=== PATIENT | female | born 1950 | race Caucasian/White ===

== ENCOUNTER → 2016-11-29 | Outpatient (CLI) | payer OTHER ==
[~2016-11-29] MED LIST: AMBI10TA PO; COUM5TAB PO; CPMMACHINE; GENTAMICIN SULFATE 80 MG/2 ML VIAL ONE; HYDR-3583 PO; LABE100T2 PO; PERC10TA27 PO; PROZ40CA PO; RELAFEN; TAMS0.4C4 PO; WALKER WHEELS/F1 MIS; [UNRECOGNIZED DRUG - CODE] IT
== END ==
LOC: CPRE 10:28
PROVIDERS: ATTEND Orthopaedic Surgery Orthopaedic Surgery of the Spine
DX: M17.11 Unilateral primary osteoarthritis, right knee (principal)

== ENCOUNTER 2016-12-10 14:29 | Inpatient (IN) | payer OTHER, MEDICARE ==
[~2016-12-10] VITALS: Ht 172.7 cm; Wt 82.1 kg
[~2016-12-10 14:29] MED LIST changes: -COUM5TAB PO; -CPMMACHINE; +DEXAMETHASONE SOD PHOS 4 MG/ML VIAL IV ONE; +ESMOLOL HCL 100 MG/10 ML VIAL IV ONE; -GENTAMICIN SULFATE 80 MG/2 ML VIAL ONE; +GLYCOPYRROLATE 1 MG/5 ML VIAL IV PUSH ONE; +LABETALOL HCL 100 MG/20 ML VIAL IV ONE; +LACTATED RINGER'S 1000 ML INJ 1,000 ML IV ONE; +LIDOCAINE HCL 1% PF 5 ML AMPULE OTHER ONE; +MIDAZOLAM HCL 2 MG/2 ML VIAL IV ONE; +NEOSTIGMINE 3 MG/3 ML SYR IV ONE; +ONDANSETRON HCL 4 MG/2 ML VIAL IV PUSH ONE; -PERC10TA27 PO; +PHENYLEPH/NS 1000 MCG/10 ML SYR IV ONE; +PROPOFOL 200 MG/20 ML AMP IV ONE; -RELAFEN; +ROCURONIUM INJ 50 MG/5 ML SYRINGE IV PUSH ONE; +SODIUM CHLORIDE 0.9% 20 ML VIAL IV ONE; -WALKER WHEELS/F1 MIS; +ePHEDrine/NS 25 MG/5 ML SYR IV ONE; +hydrALAZINE HCL 20 MG/ML VIAL IV ONE
[2016-12-10] MEDS ORDERED: GENTAMICIN SULFATE 80 MG/2 ML VIAL ONE (15:12)
[2016-12-10] MEDS ORDERED: ACETAMINOPHEN 1000 MG/100 ML 100 ML IV ONE (15:12)
[2016-12-10] MEDS ORDERED: BUPIVACAINE HCL PF 0.25% 30 ML VIAL ONE (15:12)
[2016-12-10] MEDS ORDERED: DEXAMETHASONE SOD PHOS PF 10 MG/ML VIAL ONE (15:12)
[2016-12-10] MEDS ORDERED: ceFAZolin 2 GM PREMIX 50 ML ONE (15:12)
[2016-12-10] MEDS ORDERED: LACTATED RINGER'S 1000 ML IV PRN (15:15)
[2016-12-10] MEDS ORDERED: INSULIN HUMAN REGULAR 1,000 UNITS/10 ML VIAL SQ PRN (15:15)
[2016-12-10] MEDS ORDERED: SODIUM CHLORID 0.9% 500 ML IV PRN (15:15)
[2016-12-10] MEDS ORDERED: POVIDONE IODINE 5% (ANTISEPSIS KIT) 4 APPLICATIONS EACH NARE PRN (15:15)
[2016-12-10] MEDS ORDERED: CHLORHEXIDINE GLUCONATE 2 % 1 PACK (2 CLOTHS) TOPICAL PRN (15:15)
[2016-12-10] MEDS ORDERED: METOPROLOL TARTRATE 25 MG TAB PO PRN (15:15)
[2016-12-10] MEDS ORDERED: ceFAZolin 2 GM PREMIX 50 ML IV SCH (15:30)
[2016-12-10] MEDS ORDERED: VANCOMYCIN 1000 MG/NS 250 ML (for <70 kg) IV SCH ×2 (15:30)
[2016-12-10] MEDS ORDERED: ROPIVACAINE PERI-ARTICULAR INJECTION. P-ARTICULR SCH ×5 (15:30)
[2016-12-10] MEDS ORDERED: CHLORHEXIDINE GLUCONATE 4% SOLN 120 ML BTL TOPICAL SCH (15:30)
[2016-12-10] MEDS ORDERED: ROPIVACAINE 0.5% PF INJ 30 ML VIAL ONE (15:43)
[2016-12-10] MEDS ORDERED: FAMOTIDINE 20 MG/2 ML VIAL ONE (15:45)
[2016-12-10] MEDS ORDERED: APREPITANT 40 MG CAP ONE (15:46)
[2016-12-10] MEDS ORDERED: HYDROmorphone HCL PF 2 MG/ML VIAL ONE ×2 (17:04→20:18)
[2016-12-10] MEDS: LACTATED RINGER'S 1000 ML INJ 1,000 ML IV SCH (18:25)
[2016-12-10] MEDS ORDERED: ALUMINUM/MAGNESIUM/SIMETH 30 ML CUP PO PRN (18:30)
[2016-12-10] MEDS ORDERED: Post-op Orders (for Pharmacy) MISC XX ONE (18:30)
[2016-12-10] MEDS ORDERED: SODIUM CHLORIDE 0.9% FLUSH 5 ML FLUSH IVF PRN (18:30)
--- NOTE | 2016-12-10 18:30 | HHI.FF ---
Face to Face Verification Diagnosis: (1) Osteoarthritis of right knee Physical Therapy Gait training, Transfer training, bed to chair Knee: Total knee, Protocol: Right, Full weight bearing Right LE Weight Bearing: WB as tolerated Left LE Weight Bearing: WB as tolerated Nursing RN: 3 days/week x 2 weeks Nursing: Dressing changes (clean incision with alcohol and apply dry sterile dressing ) Additional Instructions Pt/INR q Friday and , call/text results to Christina PHELPS [phone] Goal INR 1.5-1.8 I have seen patient Ciarra Lei on 12/10/16. My clinical findings support the need for the requested home health care services because: Deconditioned w/ increased weakness I certify that my clinical findings support that this patient is homebound because: Post-op weakness Akira Ramirez MD Dec 10, 2016 18:30
[2016-12-10] MEDS ORDERED: CPMMACHINE (18:31)
[2016-12-10] MEDS ORDERED: WALKER WHEELS/F1 MIS (18:31)
--- NOTE | 2016-12-10 18:34 | HHI.PR ---
Immediate Post Op Note Procedure Date: Dec 10, 2016 Pre Op Diagnosis: (1) Osteoarthritis of right knee Post Op Diagnosis: (1) Osteoarthritis of right knee Surgeon: Akira Ramirez M.D. Dance Professor(s): Christina Shelton PA-C Procedure: R TKA Complications: none Estimated blood loss: 25cc Anesthesia: General Drains: Hemovac Tourniquet time (min at mmHg) 71 @ 250 mmHg Patient to: PACU Patient Condition: Good Implant/Devices: SEE IMPLANT LOG (if applicable) Date/Time of Procedure: SEE SURGICAL CARE RECORD Akira Ramirez MD Dec 10, 2016 18:34
[2016-12-10] MEDS ORDERED: DO NOT ADM ANY ANTICOAGULANT DRUGS PRN (18:40)
[2016-12-10] MEDS ORDERED: *MEPERIDINE 25 MG INJ VIAL PERIprocedural Use ONLY ONE (18:43)
[2016-12-10] MEDS ORDERED: MEPERIDINE HCL 50 MG/ML VIAL ONE (18:52)
--- NOTE | 2016-12-10 19:22 | RADRPT ---
EXAM DATE/TIME: 12/10/2016 18:48 [facility] COMPARISON: No previous studies available for comparison. INDICATIONS : Post-op right total knee replacement. MEDICAL HISTORY : Hypertension. SURGICAL HISTORY : Appendectomy. ENCOUNTER: Initial ACUITY: 1 day PAIN SCORE: 10/10 LOCATION: Right knee. FINDINGS: Total knee arthroplasty is in place. The femoral, tibial, and patellar components appear intact. Th ere are no signs of loosening or fracture. CONCLUSION: Intact total knee arthroplasty for tracey. DrewMagalie Marcial MD on December 10, 2016 at 19:20 Board Certified Radiologist. This report was verified electronically.
[2016-12-10] MEDS ORDERED: MEPERIDINE HCL 25 MG/ML VIAL IV PRN (19:30)
[2016-12-10 20:55] VITALS: BP 152/67; PULSE 67; RESP 17; TEMP 97.1; O2SAT 97
[2016-12-10] MEDS: TAMSULOSIN HCL 0.4 MG CAP PO SCH (21:43)
[2016-12-10] MEDS: FLUoxetine HCL 20 MG CAP PO SCH (21:43)
[2016-12-10] MEDS: LABETALOL HCL 100 MG TAB PO SCH (21:43)
[2016-12-10] MEDS: ACETAMINOPHEN/HYDROcodone 325 MG/10 MG TAB PO PRN (21:44)
[2016-12-10] MEDS: SODIUM CHLORIDE 0.9% FLUSH 5 ML FLUSH IVF SCH (21:46)
--- NOTE | 2016-12-10 21:55 | EKG ---
Date Performed: 12/10/2016 Time Performed: 15:28:31 PTAGE: 65 years EKG: PROBABLY Sinus rhythm ARTIFACT LOW QRS VOLTAGE IN PRECORDIAL LEADS POOR R WAVE PROGRESSION ABNORMAL ECG NO PREVIOUS TRACING DOCTOR: Tima Roberts Interpretating Date/Time 12/10/2016 21:54:28
[2016-12-10] MEDS: ZOLPIDEM TARTRATE 10 MG TAB PO SCH (22:54)
[2016-12-11] VITALS (7 sets, daily range): BP systolic 101–152; BP diastolic 52–65; PULSE 60–73; RESP 16–18; TEMP 96.5–99.5; O2SAT 93–96
[2016-12-11] MEDS: ACETAMINOPHEN/HYDROcodone 325 MG/10 MG TAB PO PRN ×3 (03:31→13:40)
[2016-12-11] MEDS: LACTATED RINGER'S 1000 ML INJ 1,000 ML IV SCH ×2 (05:09→19:25)
--- NOTE | 2016-12-11 06:31 | MP ---
cc: PADMINI MCKEON,CASSIE Aquino M.D. DATE OF SURGERY December 10, 2016 PREOPERATIVE DIAGNOSIS Right knee severe tricompartmental osteoarthritis, knee stiffness. POSTOPERATIVE DIAGNOSIS Right knee severe tricompartmental osteoarthritis, knee stiffness. PROCEDURE Right total knee arthroplasty - cemented Biomet Vanguard. SURGEON Tony Ramirez MD ASSESSMENT Christina Shelton PA-C SPECIMEN None. ESTIMATED BLOOD LOSS 50 cc COMPLICATIONS None. ANESTHESIA General, femoral nerve block, intraarticular block. DRAINS Two. TOURNIQUET TIME 71 minutes at 250 mmHg. CONDITION Stable. PLAN OF ACTIVITY As per orders. PROCEDURE My respiratory therapist assistant Christina Shelton PA-C, was present for the entire surgical case. She was medically necessary for the entire case because of the complexity of the case and to facilitate the performance of the procedure. The BELLING MACHINE OPERATOR at the back table was not of the skill set for this case, to manipulate the instruments e.g. the multiple different soft tissue retractors, trial implants and permanent implants. The patient was brought into the operating room and had satisfactory general endotracheal anesthesia by Dr. Ford Pennington of the Department of Anesthesia. The patient also had a right femoral nerve block and had an intraarticular block by myself during the surgery. The right lower extremity was prepped and draped in the usual sterile manner. The extremity was exsanguinated by elevation and the tourniquet inflated to 250 mmHg. Anterior surgical incision was made on the right knee. Paramedian capsulotomy was performed. The patient was found to have severe tricompartmental osteoarthritis with significant stiffness involving the knee. Loose bodies were removed from within the joint itself. The remaining portion of the medial and lateral meniscus were removed. The anterior cruciate ligament was already gone. The posterior cruciate ligament was preserved. Prepatellar fat pad was surgically excised. Using the Biomet Vanguard total knee arthroplasty system, IM guide was used for the distal femoral cut. This was to accept a 67.5 mm femoral component, 5-degree valgus cut. Extramedullary guide was used for the tibia to accept a 75-mm tibial component with a 12-mm insert. Appropriate soft tissue balances in both flexion and extension were performed and the patient was found to have excellent balancing of the knee. The undersurface of the patella was removed to accept a 34-mm three-pronged patellar prosthesis. The 12-mm cupped tibial insert was found to be most stable and satisfactory. All trial components were removed and preparation for cementing was made. The knee was irrigated with copious amounts of sterile saline antibiotic solution. Two packages of Biomet Pal[place]os bone cement was used. First the tibial component was cemented which was a #75 mm tibial component, followed by the femoral component which was #67.5 femoral component. All excess bone cement was removed and the bone cement was allowed to harden for 12 minutes. The undersurface of the patella also had inserted a 34-mm, three-pronged patellar prosthesis. The 12 mm lipped or cupped tibial component was utilized. The patient was found to have excellent balance in flexion and extension and excellent stability. The clip was then assembled onto the tibial tray. The tourniquet was deflated. The wound itself was dry. All bleeders were coagulated. The wound was irrigated with 4000 cc of sterile saline antibiotic solution. The wound itself was dry. The wound was closed in the routine manner with two drains hooked up to an Autovac type system. The wound was closed in multiple layers with the capsule and the extensor mechanism closed with multiple interrupted #2 Tycron suture, the subcutaneous and subcuticular in layers with 0 Vicryl and 2-0 Vicryl suture. The skin was approximated with skin socorro. The patient tolerated the procedure well and arrived in the recovery room in stable and satisfactory condition. MD TAURUS Jenkins/VICKI /6:26 PM /6:10 AM
--- NOTE | 2016-12-11 07:47 | PD.ORT.PN ---
Subjective Subjective Remarks pt having great deal of pain involving knee Objective Vitals Vital Signs Date Time Temp Pulse Resp B/P (MAP) Pulse Ox O2 Delivery O2 Flow Rate FiO2 12/11/16 04:45 96.9 61 17 116/59 (78) 94 12/11/16 00:15 96.5 73 17 113/59 (77) 94 12/10/16 20:55 97.1 67 17 152/67 (95) 97 12/10/16 20:20 61 16 130/60 (83) 95 Nasal Cannula 2 12/10/16 20:00 64 16 158/73 (101) 97 Nasal Cannula 2 12/10/16 19:45 59 16 147/70 (95) 96 Nasal Cannula 2 12/10/16 19:30 58 16 151/68 (95) 96 Nasal Cannula 2 12/10/16 19:15 62 16 155/72 (99) 97 Nasal Cannula 2 12/10/16 19:00 59 16 148/67 (94) 96 Nasal Cannula 2 12/10/16 18:45 61 16 183/81 (115) 97 Nasal Cannula 2 12/10/16 18:37 97.5 61 18 198/88 (124) 97 Nasal Cannula 2 I/O 12/10/16 12/10/16 12/10/16 12/11/16 12/11/16 12/11/16 07:00 15:00 23:00 07:00 15:00 23:00 Intake Total 1740 ml 340 ml Output Total 640 ml 35 ml Balance 1100 ml 305 ml Intake Oral 240 ml 240 ml IV Total 100 ml Other 1500 ml Output Urine Total 500 ml Drainage Total 90 ml 35 ml Estimated Blood Loss 50 ml # Voids 1 2 # Bowel Movements 0 0 Other Results Laboratory Tests Test 12/11/16 06:50 Imaging Last 24 hours Impressions Knee X-Ray 12/10/16 1457 Signed Impressions: Service Date/Time: Saturday, December 10, 2016 18:48 - CONCLUSION: Intact total knee arthroplasty for traceyMagalie Marcial MD Objective Remarks right knee- renae dressing and canvas knee splint in place drain in place +NVI no calf tenderness Assessment & Plan Assessment and Plan POD # 1 s/p R TKA low dose coumadin for dvt prop PT-WBAT and CPM anticipate discharge tomorrow with home health care Christina Shelton Dec 11, 2016 07:47
[2016-12-11 07:50] LABS: INTERNATIONAL NORMALIZED RATIO 1.1 RATIO
[2016-12-11 07:58] LABS: HEMATOCRIT 28.9 % (35.0-46.0); REVIEW FLAG FINAL
[2016-12-11] MEDS: ONDANSETRON HCL 4 MG/2 ML VIAL IVP PRN ×2 (08:03→22:22)
[2016-12-11] MEDS ORDERED: HYDROMORPHONE HCL IT SCH (09:00)
[2016-12-11] MEDS ORDERED: [UNRECOGNIZED DRUG - OTHER] IT SCH (09:00)
[2016-12-11] MEDS: SODIUM CHLORIDE 0.9% FLUSH 5 ML FLUSH IVF SCH ×2 (09:00→21:00)
[2016-12-11] MEDS ORDERED: NACL 0.9% IT SCH (09:00)
[2016-12-11] MEDS: LABETALOL HCL 100 MG TAB PO SCH ×2 (09:00→20:31)
--- NOTE | 2016-12-11 09:36 | PD.CONS ---
HPI Service [facility] Hospitalists Consult Requested By Orthopedic doctor Reason for Consult Medical management Primary Care Physician Non-Staff Diagnoses: History of Present Illness Pleasant 65-year-old female with multiple back surgeries, bilateral knee surgeries in the past with pain management having pain pump in the abdomen, hyperlipidemia came for knee surgery. Hospitalist was consulted for medical management. The patient is in bed, she appears in not acute distress at this time however she is complaining of chest pain nonradiating, the pain is nonreproducible by palpation, and started when she came to the hospital. There is no radiation of the pain, no associated nausea, diaphoresis, palpitations, lightheadedness, nausea. Doesn't have history of GERD, no history of heart problems. No cough, fever or chills. Denies vomiting. She has occasional constipation. No urinary complaints. Review of Systems ROS Limitations: Clinical Condition Except as stated in HPI: all other systems reviewed are Neg Past Family Social History Allergies: Coded Allergies: cephalexin (Verified Allergy, Severe, Itching, 11/29/16) lithium (Verified Allergy, Severe, Hallucinations, 11/29/16) morphine (Verified Allergy, Severe, Itching, 11/29/16) sertraline (Verified Allergy, Severe, Hallucinations, 11/29/16) Uncoded Allergies: myocins (Allergy, Severe, Itching, 11/29/16) Past Medical History Hyperlipidemia, depression Past Surgical History Multiple surgeries she is 20 surgeries. She has since surgery on her back, bilateral knee surgeries appendectomy, partial facelift, nose surgery, feet surgery Reported Medications Reported Meds & Active Scripts Active Reported Prozac (Fluoxetine HCl) 40 Mg Cap 40 Mg PO HS Tamsulosin (Tamsulosin HCl) 0.4 Mg Cap 0.4 Mg PO HS Labetalol (Labetalol HCl) 100 Mg Tab 100 Mg PO BID Ambien (Zolpidem Tartrate) 10 Mg Tab 0.5-1 Tab PO HS Hydromorphone 100 mg/50 ml-Ns (Hydromorphone HCl in 0.9% NaCl) 100 Mg/50 Ml (2 Mg/Ml) Pump.resvr 3.427 Mg IT DAILY Hydrocodone-Acetaminophen 10-325 mg Tab 1 Tab PO Q6H PRN Family History Father with history of parkinsonism and dementia. Hold he also has a history of coronary artery disease stents placed. Mother with Alzheimer, hypertension hyperlipidemia with history of coronary artery disease stents placed. Also thyroid problem Social History Occasional alcohol use. Denies tobacco use or illicit drug use. Physical Exam Vital Signs Vital Signs Date Time Temp Pulse Resp B/P (MAP) Pulse Ox O2 Delivery O2 Flow Rate FiO2 12/11/16 09:05 95 Nasal Cannula 2.00 12/11/16 08:00 97.1 60 18 111/53 (72) 93 12/11/16 04:45 96.9 61 17 116/59 (78) 94 12/11/16 00:15 96.5 73 17 113/59 (77) 94 12/10/16 20:55 97.1 67 17 152/67 (95) 97 12/10/16 20:20 61 16 130/60 (83) 95 Nasal Cannula 2 12/10/16 20:00 64 16 158/73 (101) 97 Nasal Cannula 2 12/10/16 19:45 59 16 147/70 (95) 96 Nasal Cannula 2 12/10/16 19:30 58 16 151/68 (95) 96 Nasal Cannula 2 12/10/16 19:15 62 16 155/72 (99) 97 Nasal Cannula 2 12/10/16 19:00 59 16 148/67 (94) 96 Nasal Cannula 2 12/10/16 18:45 61 16 183/81 (115) 97 Nasal Cannula 2 12/10/16 18:37 97.5 61 18 198/88 (124) 97 Nasal Cannula 2 Physical Exam GENERAL: This is a well-nourished, well-developed patient, in no apparent distress. SKIN: No rashes, ecchymoses or lesions. Cool and dry. HEAD: Atraumatic. Normocephalic. No temporal or scalp tenderness. EYES: Pupils equal round and reactive. Extraocular motions intact. No scleral icterus. No injection or drainage. ENT: Nose without bleeding, purulent drainage or septal hematoma. Throat without erythema, tonsillar hypertrophy or exudate. Uvula midline. Airway patent. NECK: Trachea midline. No JVD or lymphadenopathy. Supple, nontender, no meningeal signs. CARDIOVASCULAR: Regular rate and rhythm without murmurs, gallops, or rubs. RESPIRATORY: Clear to auscultation. Breath sounds equal bilaterally. No wheezes , rales, or rhonchi. GASTROINTESTINAL: Abdomen soft, non-tender, nondistended. Palpable abdominal pain pump in the left lower quadrant. No guarding. MUSCULOSKELETAL: Status post right knee surgery. Extremities without clubbing, cyanosis, or edema. No joint tenderness, effusion, or edema noted. No calf tenderness. Negative Homans sign bilaterally. NEUROLOGICAL: Awake and alert. Cranial nerves II through XII intact. Motor and sensory grossly within normal limits. Five out of 5 muscle strength in all muscle groups. Normal speech. Laboratory Laboratory Tests Test 12/11/16 06:50 Hemoglobin 10.0 Hematocrit 28.9 Prothrombin Time 12.0 Prothromb Time International Ratio 1.1 Result Diagram: 12/11/16 0650 Imaging Last Impressions Knee X-Ray 12/10/16 1825 Signed Impressions: Service Date/Time: Saturday, December 10, 2016 18:48 - CONCLUSION: Intact total knee arthroplasty for tracey. Jese Marcial MD Assessment and Plan Assessment and Plan 65-year-old female with Severe right knee Osteoarthritis status post right total knee arthroplasty - surgery by Dr. Perez Right knee severe tricompartmental osteoarthritis, knee stiffness. Management per surgeon Pain management per surgeon Patient also has a pain pump in her left lower abdominal quadrant Hypertension. Continue home medications. Patient is complaining of chest pain will do EKG and troponin Monitor vital signs DVT prophylaxis SCD/teds, chemoprophylaxis per surgeon Thank you for this consultation Discussed Condition With Patient, nurse Shadia Bingham MD Dec 11, 2016 09:36
[2016-12-11] MEDS ORDERED: WARFARIN SOD 5 MG TAB PO SCH (16:00)
[2016-12-11] MEDS ORDERED: oxyCODONE/ACETAMINOPHEN 10 MG/325 MG TAB PO PRN (17:30)
[2016-12-11] MEDS: oxyCODONE/ACETAMINOPHEN 10 MG/325 MG TAB PO PRN ×3 (17:42→23:34)
[2016-12-11] MEDS: FLUoxetine HCL 20 MG CAP PO SCH (20:31)
[2016-12-11] MEDS: TAMSULOSIN HCL 0.4 MG CAP PO SCH (20:31)
[2016-12-11] MEDS ORDERED: RELAFEN (20:36)
[2016-12-11] MEDS ORDERED: HYDROmorphone HCL PF 2 MG/ML VIAL IV ONE (21:00)
[2016-12-11] MEDS: ZOLPIDEM TARTRATE 10 MG TAB PO SCH (22:22)
[2016-12-12 00:46] VITALS: BP 116/56; PULSE 77; RESP 16; TEMP 100.1; O2SAT 94
[2016-12-12] MEDS: oxyCODONE/ACETAMINOPHEN 10 MG/325 MG TAB PO PRN ×3 (04:44→09:13)
[2016-12-12] MEDS: LACTATED RINGER'S 1000 ML INJ 1,000 ML IV SCH (07:55)
[2016-12-12 08:00] VITALS: BP 158/62; PULSE 74; RESP 18; TEMP 98.7; O2SAT 95
[2016-12-12] MEDS: SODIUM CHLORIDE 0.9% FLUSH 5 ML FLUSH IVF SCH (09:00)
[2016-12-12] MEDS: LABETALOL HCL 100 MG TAB PO SCH (09:12)
[2016-12-12 09:52] LABS: INTERNATIONAL NORMALIZED RATIO 1.2 RATIO; PROTHROMBIN TIME - PATIENT 12.8 SEC (9.8-11.6)
--- NOTE | 2016-12-12 10:08 | PD.ORT.PN ---
Subjective Subjective Remarks pt complains of post op knee pain but states it is better controlled with the Percocet chest pain she had yesterday has resolved would like to go home today Objective Vitals Vital Signs Date Time Temp Pulse Resp B/P (MAP) Pulse Ox O2 Delivery O2 Flow Rate FiO2 12/12/16 09:02 Nasal Cannula 12/12/16 08:00 98.7 74 18 158/62 (94) 95 12/12/16 00:46 100.1 77 16 116/56 (76) 94 12/11/16 19:28 Room Air 12/11/16 19:10 97.8 73 16 152/65 (94) 12/11/16 16:05 99.5 68 16 121/58 (79) 95 12/11/16 12:00 97.8 69 17 101/52 (68) 96 I/O 12/11/16 12/11/16 12/11/16 12/12/16 12/12/16 12/12/16 07:00 15:00 23:00 07:00 15:00 23:00 Intake Total 340 ml 480 ml 480 ml 120 ml Output Total 35 ml Balance 305 ml 480 ml 480 ml 120 ml Intake Oral 240 ml 480 ml 480 ml 120 ml IV Total 100 ml Drainage Total 35 ml # Voids 2 2 2 1 # Bowel Movements 0 0 0 0 Result Diagram: 12/11/16 0650 Other Results Laboratory Tests Test 12/12/16 08:38 Prothromb Time International Ratio 1.2 RATIO Prothrombin Time 12.8 SEC (9.8-11.6) Imaging Last 24 hours Impressions Knee X-Ray 12/10/16 5434 Signed Impressions: Service Date/Time: Saturday, December 10, 2016 18:48 - CONCLUSION: Intact total knee arthroplasty for technique. KMagalie Marcial MD Objective Remarks right knee- dressing dry and intact +NVI no calf tenderness Assessment & Plan Assessment and Plan POD # 2 s/p R TKA low dose coumadin for dvt prop PT-WBAT and CPM rx for Percocet in chart, also has pain pump discharge today with home health care, orthopedically stable Christina Shelton Dec 12, 2016 10:08
[2016-12-12] MEDS ORDERED: PERC10TA27 PO (10:10)
[2016-12-12] MEDS ORDERED: COUM5TAB PO (10:11)
--- NOTE | 2016-12-12 12:54 | HHI.PR ---
Subjective Remarks Seen earlier today. Feels better. No chest pain or sob. Ambulating fairly well. No n/v/d/c. Objective Vitals Vital Signs Date Time Temp Pulse Resp B/P (MAP) Pulse Ox O2 Delivery O2 Flow Rate FiO2 12/12/16 09:02 Nasal Cannula 12/12/16 08:00 98.7 74 18 158/62 (94) 95 12/12/16 00:46 100.1 77 16 116/56 (76) 94 12/11/16 19:28 Room Air 12/11/16 19:10 97.8 73 16 152/65 (94) 12/11/16 16:05 99.5 68 16 121/58 (79) 95 I/O 12/11/16 12/11/16 12/11/16 12/12/16 12/12/16 12/12/16 07:00 15:00 23:00 07:00 15:00 23:00 Intake Total 340 ml 480 ml 480 ml 120 ml Output Total 35 ml Balance 305 ml 480 ml 480 ml 120 ml Intake Oral 240 ml 480 ml 480 ml 120 ml IV Total 100 ml Drainage Total 35 ml # Voids 2 2 2 1 # Bowel Movements 0 0 0 0 Result Diagram: 12/11/16 0650 Imaging Last Impressions Knee X-Ray 12/10/16 1825 Signed Impressions: Service Date/Time: Saturday, December 10, 2016 18:48 - CONCLUSION: Intact total knee arthroplasty for technique. Jese Marcial MD Objective Remarks GENERAL: This is a well-nourished, well-developed patient, in no apparent distress. CARDIOVASCULAR: Regular rate and rhythm without murmurs, gallops, or rubs. RESPIRATORY: Clear to auscultation. Breath sounds equal bilaterally. No wheezes , rales, or rhonchi. GASTROINTESTINAL: Abdomen soft, non-tender, nondistended. Palpable abdominal pain pump in the left lower quadrant. No guarding. MUSCULOSKELETAL: Status post right knee surgery, dressing c/d/i . No calf tenderness. NEUROLOGICAL: Awake and alert. Cranial nerves II through XII intact. Motor and sensory grossly within normal limits. Five out of 5 muscle strength in all muscle groups. Normal speech. A/P Assessment and Plan 65-year-old female with Severe right knee Osteoarthritis status post right total knee arthroplasty - surgery by Dr. Perez Right knee severe tricompartmental osteoarthritis, knee stiffness. Management per surgeon Pain management per surgeon Patient also has a pain pump in her left lower abdominal quadrant Hypertension. Continue home medications. Patient is complaining of chest pain, EKG and troponin reviewed and negative, chest pain subsided. Monitor vital signs DVT prophylaxis SCD/teds, chemoprophylaxis per surgeon Thank you for this consultation Discussed Condition With Patient, nurse Patient is stable medically. Cleared by hospitalist for DC. Shadia Bingham MD Dec 12, 2016 12:54
--- NOTE | 2016-12-12 17:37 | EKG ---
Date Performed: 12/11/2016 Time Performed: 12:12:17 PTAGE: 65 years EKG: NORMAL Sinus rhythm POSSIBLE RIGHT VENTRICULAR CONDUCTION DELAY POSSIBLE ANTERIOR MYOCARDIAL INFARCTION , OF INDETERMINA TE AGE POSSIBLE INFERIOR MYOCARDIAL INFARCTION , PROBABLY OLD SINCE THE PRIOR TRACING AND ALLOWING F OR THE ARTIFACT ON THE PREVIOUS TRACING THERE HAS BEEN NO GROSS SERIAL CHANGE. ABNORMAL ECG PREVIOUS TRACING : 12/10/2016 15.28 DOCTOR: Judy Jeffrey Interpretating Date/Time 12/12/2016 17:37:22
== END 2016-12-12 13:35 | disposition home health service (06) | DRG 470 ==
LOC: HSDI 14:29 → N06A 20:39
PROVIDERS: ADMIT Orthopaedic Surgery Orthopaedic Surgery of the Spine; ATTEND Orthopaedic Surgery Orthopaedic Surgery of the Spine
PROC: 3E0T3BZ Introduction of Anesthetic Agent into Peripheral Nerves and Plexi, Percutaneous Approach (ICD-10-PCS; 2016-12-10)
PROC: 0SRC0J9 Replacement of Right Knee Joint with Synthetic Substitute, Cemented, Open Approach (ICD-10-PCS; principal; 2016-12-10 15:49)
DX: M17.11 Unilateral primary osteoarthritis, right knee (principal); G62.9 Polyneuropathy, unspecified; I10 Essential (primary) hypertension; E78.5 Hyperlipidemia, unspecified; F32.9 Major depressive disorder, single episode, unspecified; R07.9 Chest pain, unspecified; Z87.891 Personal history of nicotine dependence; Z88.1 Allergy status to other antibiotic agents; Z88.5 Allergy status to narcotic agent
CPT/HCPCS: 36430; 73560; 84484; 85014; 85018; 85610; 86850; 86900; 86901; 86920; 93005; 94150; C1776; J0131; J0360; J0690; J0735; J1100; J1170; J1580; J1885; J2175; J2250; J2370; J2405; J2710; J2795; J3010; J7120; J8501